=== PATIENT | female | born 1940 | race Caucasian/White ===

== ENCOUNTER 2017-02-14 15:17 | Inpatient (IN) | payer MEDICARE ==
[~2017-02-14] VITALS: Ht 165.1 cm; Wt 71.9 kg
--- NOTE | ~2017-02-14 | EKG ---
[place], [place] ELECTROCARDIOGRAM REPORT NAME: REGGIE AUGUSTE UNIT #: [id number] ROOM: 404 DOCTOR: SIXTO RICE MD BIRTHDATE: [birth year] DOS: 02/14/2017 TIME: 1554 hours. Atrial fibrillation with a ventricular rate of 71 beats per minute. No evidence of ischemia or infarction. An abnormal ECG. No previous tracing is available for comparison. SIXTO RICE MD CM:EKGRPT:ELECTROCARDIOGRAM REPORT [id number] 1415 SIXTO RICE MD
--- NOTE | ~2017-02-14 | CON ---
[place], [place] REPORT OF CONSULTATION [id number] UNIT #: [id number] ROOM: 404 DOCTOR: SIXTO RICE MD BIRTHDATE: [birth year] DOS: 02/15/2017 HISTORY OF PRESENT ILLNESS: This is a 76-year-old -[place] woman with a history of breast cancer diagnosed in 1999, without any recurrences; GERD; hypercholesterolemia; hypertension. She has never had any rhythm problem of the heart, coronary artery disease. She had a diagnostic heart catheterization in this hospital in 2006, which I performed and she had normal coronary arteries at that time. She has never had a stroke, diabetes mellitus, kidney problems or anemia or any other chronic issues. She had back surgery in the remote past as well as a cholecystectomy and left breast lumpectomy for cancer. She smokes 1-1/2 to 2 packs of cigarettes per day and has done this for a long time. No use of illicit drugs and really uses no alcoholic beverage. She had some abdominal pain a few days ago and ended up in [facility] Emergency Department, where evaluation was done and she was discharged home. She went to see Dr. Richards yesterday and was found to be in atrial fibrillation and was admitted. I was asked to participate in the care of this dysrhythmia. The patient is not aware of her heart beating irregularly. She has not had any palpitations. There has not been any undue shortness of breath, PND, orthopnea, or swelling of the lower extremities. She has not had any neurological symptoms. HOME MEDICATIONS: Include pravastatin 40 daily, omeprazole 20 daily, vitamin D and aspirin 81 mg daily. PHYSICAL EXAMINATION: GENERAL: Reveals a patient who is very pleasant, alert. She is tall and slim. There is no thyromegaly or finger clubbing. She is not jaundiced. VITAL SIGNS: Pulse is irregular at 60 beats per minute, blood pressure 137/77. NECK: JVP is normal. There is no carotid bruit. HEART: There is no cardiomegaly. No murmurs are present. EXTREMITIES: There is no rub. Pedal pulses are excellent. There is no edema of the lower extremities. RESPIRATORY: She is not tachypneic. Percussion note is normal. Auscultation reveals only mild reduced breath sounds with no adventitious sounds. ABDOMEN: Supple, nontender. No bruits or pulsatile mass. LABORATORY DATA: An ECG on admission demonstrated atrial fibrillation with a controlled rate, no ischemia or infarction. The chest x-ray demonstrated no acute process. Renal function was normal. Potassium was 3.6. Liver profile was fairly decent TSH was 0.617, which is normal. An echocardiogram was performed today, which demonstrated an LVEF of 55-60%, normal right ventricular size and normal systolic function and normal left atrial size, and trace to mild tricuspid regurgitation, mild mitral regurgitation. [place], [place] REPORT OF CONSULTATION NAME: REGGIE AUGUSTE UNIT #: [id number] ROOM: 404 DOCTOR: SIXTO RICE MD BIRTHDATE: [birth year] IMPRESSION: This patient has newly diagnosed atrial fibrillation with controlled ventricular rate. She is not on any beta freddy or any negative chronotropic drugs. Thus, suggest that she probably has AV node dysfunction. I totally agree with you in placing her on DOAC i.e. apixaban/Eliquis 5 mg b.i.d. RECOMMENDATIONS: She should be continued on anticoagulation. I would like to see her in the office in 3-4 weeks. If she still is in atrial fibrillation, then electrical cardioversion will be attempted which I think will likely to be successful with the background of normal LV systolic function and normal left atrial size. If this fails, then she will be started on antiarrhythmic drug and cardioversion can be reattempted. She had normal coronary arteries 8 years ago and it is unlikely there is underlying coronary artery disease as the cause of her atrial fibrillation, but one probably should consider doing a Lexiscan Cardiolite study to exclude significant coronary disease. I thank you for this consult. SIXTO RICE MD CM:CONSTR:REPORT OF CONSULTATION 1342 02/16/17 0205 interface
[~2017-02-14 15:17] MED LIST: ASPIRIN81 M1 PO; CALCIUM 500 + D1 TA1 PO; CENTRUM1 TAB PO; CIPROFLOXACIN250 MG PO; CONSTULOSE10 GM/15 M PO; DARVOCET N 1001 TAB PO; DAYPRO600 M1 PO; FLEXERIL10 MG PO; HYDROCODONE BIT1 T11 PO; LOPRESSOR25 MG PO; LOTREL 10 MG-201 CAP PO; NAPROSYN500 MG PO; NORFLEX100 MG PO; NORVASC10 MG PO; OYSTER CALCIUM/1 TAB PO; PRAVASTATIN SOD40 MG PO; PRILOSEC20 MG PO; SKELAXIN800 MG PO; VITAMIN D400 UNIT PO; ZANTAC150 MG PO; ZOCOR10 MG PO
[2017-02-14 15:33] VITALS: BP 159/58
[2017-02-14 16:14] LABS: BASO # 0.1 10*3/uL (0.0-0.1); BASO % 0.7 % (0.0-1.0); EOS # 0.3 10*3/uL (0.0-0.4); EOS % 2.8 % (1.0-4.0); HEMATOCRIT 44.1 % (37.0-47.0); LYMPH # 2.6 10*3/uL (1.3-4.4); LYMPH % 28.8 % (27.0-41.0); MEAN CELL VOLUME 93.8 fl (81.0-99.0); MEAN CORPUSCULAR HGB 31.9 pg (27.0-31.0); MEAN PLATELET VOLUME 11.1 fl (9.6-12.3); MONO # 0.8 10*3/uL (0.1-1.0); MONO % 8.7 % (3.0-9.0); NEUT # 5.3 10*3/uL (2.3-7.9); NEUT % 58.6 % (47.0-73.0); PLATELET COUNT AUTOMATED 272 10*3/uL (130-400); RED CELL DISTRI WIDTH 14.6 % (0-14.5)
[2017-02-14 16:37] LABS: ALBUMIN 3.5 gm/dl (3.1-4.5); ALKALINE PHOSPHATASE 124 U/L (45-117); BUN 8 mg/dl (7-24); CHLORIDE 107 mmol/L (98-107); CREATININE 0.89 mg/dL (0.55-1.02); LIPASE 163 U/L (73-393); MAGNESIUM 2.2 mg/dL (1.5-2.1); POTASSIUM 4.4 mmol/L (3.5-5.1); SGOT/AST 15 IU/L (3-35); SGPT/ALT 20 U/L (12-78); SODIUM 142 mmol/L (136-145); TOTAL PROTEIN 7.6 gm/dL (6.4-8.2)
[2017-02-14 16:39] LABS: TROPONIN I < 0.015 ng/ml (<0.045)
[2017-02-14 17:10] LABS: BILIRUBIN NEGATIVE (NEGATIVE); BLOOD NEGATIVE (NEGATIVE); CLARITY SL CLOUDY (CLEAR); COLOR YELLOW (YELLOW); GLUCOSE NEGATIVE (NEGATIVE); KETONE NEGATIVE (NEGATIVE); LEUKO ESTERASE NEGATIVE (NEGATIVE); NITRITE NEGATIVE (NEGATIVE); SPECIFIC GRAVITY <= 1.005 (1.005-1.030); UROBILINOGEN 0.2 E.U./dl (0.2-1.0)
[2017-02-14 17:19] LABS: BACTERIA 2+; WBC 0-2 wbc/hpf (0-5)
--- NOTE | 2017-02-14 18:51 | NUR ---
[facility] 76[facility] , under the services of NALINI Johnson MD with a diagnosis of AFIB. Chief complaint is EKG \CHANGES. Patient arrived via bed from ER. Monitor applied. Initial assessment completed. Vital signs taken and recorded. NALINI JOHNSON MD notified of admission to the unit. Orders received. See assessment for past medical history, medications and allergies. Patient and/or family oriented to unit. [facility] visitation policy reviewed. Clothing/patient valuable form completed. JAYLON FERRERA
--- NOTE | 2017-02-14 19:03 | NUR ---
DR. RICE AWARE OF CONSULT AND IS IN AGREEMENT WITH LAKISHA. ECHO TO BE ORDERED AND WILL SEE IN AM.
[2017-02-14 19:06] VITALS: BP 145/51
[2017-02-14 20:00] VITALS: BP 125/58
[2017-02-15] VITALS: BP 145/76
--- NOTE | 2017-02-15 04:02 | NUR ---
PATIENT RESTING IN BED WITH EYES CLOSED. NO SIGNS OR SYMPTOMS OF DISTRESS NOTED. NO COMPLAINTS OF PAIN OR DISCOMFORT VOICED THROUGHOUT SHIFT. WILL CONTINUE TO MONITOR. CALL LIGHT IN REACH.
[2017-02-15 05:50] LABS: BASO # 0.1 10*3/uL (0.0-0.1); BASO % 0.8 % (0.0-1.0); EOS # 0.4 10*3/uL (0.0-0.4); EOS % 4.5 % (1.0-4.0); HEMATOCRIT 41.1 % (37.0-47.0); HEMOGLOBIN 13.4 g/dl (12.0-16.0); LYMPH # 3.1 10*3/uL (1.3-4.4); LYMPH % 36.1 % (27.0-41.0); MEAN CELL VOLUME 94.7 fl (81.0-99.0); MEAN CORPUSCULAR HGB 30.9 pg (27.0-31.0); MEAN CORPUSCULAR HGB CONC 32.6 g/dl (33.0-37.0); MEAN PLATELET VOLUME 11.5 fl (9.6-12.3); MONO % 11.1 % (3.0-9.0); NEUT # 4.1 10*3/uL (2.3-7.9); PLATELET COUNT AUTOMATED 261 10*3/uL (130-400); RED BLOOD COUNT 4.34 10*6/uL (4.10-5.10); RED CELL DISTRI WIDTH 14.7 % (0-14.5); WHITE BLOOD COUNT 8.6 10*3/uL (4.8-10.8)
[2017-02-15 06:10] LABS: ALBUMIN 2.9 gm/dl (3.1-4.5); ALKALINE PHOSPHATASE 104 U/L (45-117); BUN 8 mg/dl (7-24); CHLORIDE 108 mmol/L (98-107); CHOLESTEROL 131 mg/dL (<200); CREATININE 0.72 mg/dL (0.55-1.02); HDL CHOLESTEROL 48 mg/dl (40-60); LDL CHOLESTEROL 60 mg/dL (9-159); PHOSPHOROUS 3.7 mg/dL (2.5-4.9); POTASSIUM 3.6 mmol/L (3.5-5.1); SGOT/AST 11 IU/L (3-35); SGPT/ALT 17 U/L (12-78); SODIUM 143 mmol/L (136-145); TOTAL PROTEIN 6.4 gm/dL (6.4-8.2); TRIGLYCERIDES 113 mg/dl (<150); VLDL CHOLESTEROL 23 mg/dL (6-40)
[2017-02-15 06:17] LABS: THYROID STIM HORMONE (HS) 0.617 uIU/ml (0.358-4.75)
[2017-02-15 06:42] LABS: VITAMIN D, 25-HYDROXY 35.2 ng/mL (30-100)
[2017-02-15 08:00] VITALS: BP 154/74
--- NOTE | 2017-02-15 08:00 | NUR ---
Patient resting quietly with no c/o discomfort. Respirations easy and regular. Vital signs stable. No overt distress. CHUCK GARNICA R
--- NOTE | 2017-02-15 08:38 | NUR ---
[employer] Developer in to talk to patient. Patient states lives at HOME with HER DAUGHTER. There are 0 steps in the home. Physician: DR CAMPBELL Pharmacy: [facility] [place] Home health services: NONE Patient's level of ADLs: INDEPENDENT Patient has working utilities: YES DME: Follow-up physician's appointment after d/c: PREFERS TO MAKE HER OWN APPT Does patient want to access PORTAL?: Discharge plan HOME. OLIVER RAUSCH
--- NOTE | 2017-02-15 09:01 | NUR ---
PT HAS A CANE AND WALKER AT HOME.
--- NOTE | 2017-02-15 09:24 | NUR ---
ELIQUIS APPROVED THROUGH [facility]. PER MARILYNE SAVANNAH IN [place], PT WILL HAVE $8.[address] HODGSON NOTIFIED.
--- NOTE | 2017-02-15 09:31 | NUR ---
Marielos nathan called re: medication verification. Fax will be sent over soon per pharmacy staff.
[2017-02-15 12:00] VITALS: BP 137/77
[2017-02-15] MEDS ORDERED: ELIQUIS5 M1 PO (13:30)
--- NOTE | 2017-02-15 14:24 | NUR ---
Discharge instructions reviewed with patient/family. Patient receptive and verbalizes understanding. Follow-up care arranged. Written instructions given to patient/family. FÁTIMA NASH
== END 2017-02-15 14:24 | disposition home or self-care (01) | DRG 309 ==
LOC: ED 15:17 → EDHOLD 17:30 → 4E 17:30
PROVIDERS: Internal Medicine Hospice and Palliative Medicine; Physician Assistant; ADMIT Internal Medicine
DX: I48.91 Unspecified atrial fibrillation (principal); E87.2 Acidosis; E83.41 Hypermagnesemia; R73.9 Hyperglycemia, unspecified; I48.92 Unspecified atrial flutter; K21.9 Gastro-esophageal reflux disease without esophagitis; E78.00 Pure hypercholesterolemia, unspecified; I10 Essential (primary) hypertension; R19.7 Diarrhea, unspecified; Z88.2 Allergy status to sulfonamides; Z91.048 Other nonmedicinal substance allergy status; Z79.2 Long term (current) use of antibiotics; Z88.0 Allergy status to penicillin; Z79.82 Long term (current) use of aspirin; Z79.899 Other long term (current) drug therapy; Z90.49 Acquired absence of other specified parts of digestive tract; Z82.49 Family history of ischemic heart disease and other diseases of the circulatory system; Z83.3 Family history of diabetes mellitus; Z85.3 Personal history of malignant neoplasm of breast; Z90.710 Acquired absence of both cervix and uterus; Z82.3 Family history of stroke; Z84.89 Family history of other specified conditions; Z71.6 Tobacco abuse counseling; Z72.0 Tobacco use

== ENCOUNTER → 2017-10-15 | Outpatient (CLI) | payer MEDICARE ==
[~2017-10-15] MED LIST changes: +ELIQUIS5 M1 PO
== END | disposition home or self-care (01) ==
LOC: MAMMO 03:56
DX: C50.912 Malignant neoplasm of unspecified site of left female breast (principal); R92.8 Other abnormal and inconclusive findings on diagnostic imaging of breast

== ENCOUNTER → 2018-01-29 | Outpatient (CLI) | payer MEDICARE | END | disposition home or self-care (01) | LOC: RAD 12:45 | DX: M25.552 Pain in left hip (principal) ==

== ENCOUNTER → 2018-02-14 | Outpatient (CLI) | payer MEDICARE | END | disposition home or self-care (01) | LOC: MRI 10:46 | DX: M16.12 Unilateral primary osteoarthritis, left hip (principal); M81.0 Age-related osteoporosis without current pathological fracture; Z85.3 Personal history of malignant neoplasm of breast ==

== ENCOUNTER → 2019-01-30 | Day surgery (SDC) | payer MEDICARE ==
[~2019-01-30] MED LIST changes: +NORCO 5-325 TA1 EACH PO
--- NOTE | ~2019-01-30 | O ---
[place], [place] OPERATIVE NOTE NAME: [facility] [id number] UNIT #: [id number] ROOM: DO[facility] [birth year] DOS: 01/30/2019 GASTROENDOSCOPIC REPORT HISTORY OF PRESENT ILLNESS: This is a 78-year-old patient who has presented with Cologuard positivity, complaint of melanoma and has been on Eliquis and aspirin. ALLERGIES: SULFA, PENICILLIN, AND ____. FAMILY HISTORY: Noncontributory. PAST SURGICAL HISTORY: Partial mastectomy. PAST MEDICAL HISTORY: Breast lumpectomy, status post chemoradiation therapy, and hypercholesterolemia. SOCIAL HISTORY: Active smoker, social alcohol consumer. PROCEDURE #1: PROCEDURE: Today's procedure part of investigation is colonoscopy and panendoscopy. PREMEDICATION: Propofol. SCOPE: Olympus forward-viewing gastroscope Q10 video. REPORT: After putting the patient in left lateral position and application of lubricant to the scope, the scope was introduced. Thereafter, under direct visualization, advanced through the length of esophagus without difficulty. Small hiatal hernia was seen, gastritis noticed. Antral biopsy obtained. Duodenal bulb, second and third part within normal limit. The patient extubated, tolerated the procedure well. IMPRESSION: Gastritis. PLAN AND DISCUSSION: We will continue with Prilosec 20 mg every day. We will proceed with colonoscopy. PROCEDURE #2: INDICATION: The patient has presented with Cologuard positivity. PROCEDURE: Today's procedure part of investigation is colonoscopy plus polypectomy with a snare plus tattoo marking of the sigmoid colon. PREMEDICATION: Propofol. [place], [place] OPERATIVE NOTE NAME: REGGIE AUGUSTE UNIT #: [id number] ROOM: DOCTOR[facility] [birth year] SCOPE: Olympus forward-viewing colonoscope 10L video. DESCRIPTION OF PROCEDURE: After putting the patient in left lateral position and application of lubricant to rectal pouch and distal examination, scope was introduced. Thereafter, under direct visualization, advanced through the length of colon without difficulty. Numerous polypoid lesions throughout the colon was identified, one in sigmoid colon, partially ____ with snare tattoo marking of the area was done. There is essentially too many small and medium size polyps ____ complete polypectomies. The area of the colon concern was tattoo marked. The patient extubated, tolerated the procedure well. IMPRESSION: Many colonic polyps with polypectomy on one and tattoo marking of the sigmoid colon. PLAN AND DISCUSSION: Of mention is that the patient has a cecal large angiodysplastic lesion, which is another source of possible blood loss, particularly in view of the intake of aspirin and Eliquis. We have to discuss with the family to see if they want to remain conservative due to the age of the patient, 78 or would they like to consider periodic colonoscopy and periodic eradication of numerous polyps and also argon plasma coagulation therapy for eradication of the cecal angiodysplastic lesion. INDIGO IRBAHIM MD CM:OPRECORD:OPERATIVE NOTE 1131 1501 INDIGO IBRAHIM MD 01/30/19 1459 interface
[2019-01-30 09:30] VITALS: BP 168/81
[2019-01-30 11:16] VITALS: BP 115/44
[2019-01-30 11:26] VITALS: BP 117/45
[2019-01-30 11:46] VITALS: BP 114/64
== END | disposition home or self-care (01) ==
LOC: SDC 01-27 08:00
DX: K63.5 Polyp of colon (principal); K44.9 Diaphragmatic hernia without obstruction or gangrene; K29.50 Unspecified chronic gastritis without bleeding; I10 Essential (primary) hypertension; K21.9 Gastro-esophageal reflux disease without esophagitis; E78.5 Hyperlipidemia, unspecified; I48.91 Unspecified atrial fibrillation; F17.210 Nicotine dependence, cigarettes, uncomplicated; Z88.8 Allergy status to other drugs, medicaments and biological substances; Z79.899 Other long term (current) drug therapy; Z98.890 Other specified postprocedural states; Z83.3 Family history of diabetes mellitus

== ENCOUNTER → 2019-02-03 | Day surgery (SDC) | payer MEDICARE ==
[~2019-02-03] VITALS: Ht 165.1 cm; Wt 68.9 kg
[2019-02-03 14:00] VITALS: BP 141/53
[2019-02-03 15:53] VITALS: BP 131/44
[2019-02-03 16:10] VITALS: BP 150/44
[2019-02-03 16:19] VITALS: BP 153/58
== END | disposition home or self-care (01) ==
LOC: SDC 08:10
DX: L72.0 Epidermal cyst (principal); I10 Essential (primary) hypertension; E11.9 Type 2 diabetes mellitus without complications; K21.9 Gastro-esophageal reflux disease without esophagitis; F41.9 Anxiety disorder, unspecified; F32.9 Major depressive disorder, single episode, unspecified; J44.9 Chronic obstructive pulmonary disease, unspecified; E78.5 Hyperlipidemia, unspecified; R22.2 Localized swelling, mass and lump, trunk; E66.9 Obesity, unspecified; Z68.36 Body mass index [BMI] 36.0-36.9, adult; Z98.890 Other specified postprocedural states; Z87.891 Personal history of nicotine dependence; Z79.899 Other long term (current) drug therapy; Z88.8 Allergy status to other drugs, medicaments and biological substances; Z88.0 Allergy status to penicillin; Z83.3 Family history of diabetes mellitus

== ENCOUNTER → 2019-03-23 | Day surgery (SDC) | payer MEDICARE ==
[~2019-03-23] VITALS: Ht 165.1 cm; Wt 68.0 kg
[2019-03-23 07:30] VITALS: BP 164/50
[2019-03-23 09:17] VITALS: BP 170/60
[2019-03-23 09:32] VITALS: BP 146/82
[2019-03-23 09:47] VITALS: BP 156/65
[2019-03-23 10:02] VITALS: BP 147/74
== END | disposition home or self-care (01) ==
LOC: SDC 03-20 11:45
DX: L72.0 Epidermal cyst (principal); K21.9 Gastro-esophageal reflux disease without esophagitis; I10 Essential (primary) hypertension; I48.91 Unspecified atrial fibrillation; E78.00 Pure hypercholesterolemia, unspecified; E78.5 Hyperlipidemia, unspecified; F17.210 Nicotine dependence, cigarettes, uncomplicated; Z90.49 Acquired absence of other specified parts of digestive tract; Z90.710 Acquired absence of both cervix and uterus; Z98.890 Other specified postprocedural states; Z79.899 Other long term (current) drug therapy; Z88.0 Allergy status to penicillin; Z88.8 Allergy status to other drugs, medicaments and biological substances; Z85.3 Personal history of malignant neoplasm of breast; Z82.5 Family history of asthma and other chronic lower respiratory diseases; Z83.3 Family history of diabetes mellitus

== ENCOUNTER 2019-09-28 15:39 | Emergency (ER) | payer MEDICARE ==
[~2019-09-28] VITALS: Ht 165.1 cm; Wt 71.7 kg
[2019-09-28 16:11] VITALS: BP 142/65
[2019-09-28 16:50] LABS: BASO # 0.1 10*3/uL (0.0-0.1); BASO % 0.6 % (0.0-1.0); EOS # 0.2 10*3/uL (0.0-0.4); EOS % 2.1 % (1.0-4.0); HEMATOCRIT 40.2 % (37.0-47.0); LYMPH # 2.6 10*3/uL (1.3-4.4); LYMPH % 22.7 % (27.0-41.0); MEAN CELL VOLUME 91.8 fl (81.0-99.0); MEAN CORPUSCULAR HGB 30.1 pg (27.0-31.0); MEAN CORPUSCULAR HGB CONC 32.8 g/dl (33.0-37.0); MEAN PLATELET VOLUME 11.2 fl (9.6-12.3); MONO # 1.1 10*3/uL (0.1-1.0); MONO % 9.3 % (3.0-9.0); NEUT # 7.5 10*3/uL (2.3-7.9); NEUT % 64.9 % (47.0-73.0); PLATELET COUNT AUTOMATED 298 10*3/uL (130-400); RED BLOOD COUNT 4.38 10*6/uL (4.10-5.10); WHITE BLOOD COUNT 11.6 10*3/uL (4.8-10.8)
[2019-09-28 17:00] LABS: ACT PARTIAL THROMBO TIME 28.2 SECONDS (20.0-32.1)
[2019-09-28 17:05] LABS: ALBUMIN 3.7 gm/dl (3.1-4.5); ALKALINE PHOSPHATASE 104 U/L (45-117); BUN 13 mg/dl (7-24); CHLORIDE 113 mmol/L (98-107); CREATININE 1.18 mg/dL (0.55-1.02); LIPASE 195 U/L (73-393); POTASSIUM 3.8 mmol/L (3.5-5.1); SGOT/AST 16 IU/L (3-35); SGPT/ALT 25 U/L (12-78); SODIUM 142 mmol/L (136-145); TOTAL PROTEIN 7.5 gm/dL (6.4-8.2)
[2019-09-28 17:08] LABS: TROPONIN I < 0.015 ng/ml (<0.045)
== END 2019-09-28 19:14 | disposition home or self-care (01) ==
LOC: ED 15:39
PROVIDERS: Nurse Practitioner Family
DX: K92.1 Melena (principal); I48.91 Unspecified atrial fibrillation; I10 Essential (primary) hypertension; K21.9 Gastro-esophageal reflux disease without esophagitis; E78.00 Pure hypercholesterolemia, unspecified; F17.200 Nicotine dependence, unspecified, uncomplicated; Z86.73 Personal history of transient ischemic attack (TIA), and cerebral infarction without residual deficits; Z88.0 Allergy status to penicillin; Z88.2 Allergy status to sulfonamides; Z91.048 Other nonmedicinal substance allergy status; Z79.899 Other long term (current) drug therapy; Z79.82 Long term (current) use of aspirin; Z98.61 Coronary angioplasty status; Z90.710 Acquired absence of both cervix and uterus; Z90.89 Acquired absence of other organs; Z90.49 Acquired absence of other specified parts of digestive tract

== ENCOUNTER 2020-02-02 11:10 | Emergency (ER) | payer MEDICARE ==
[~2020-02-02] VITALS: Ht 175.2 cm; Wt 76.7 kg
[2020-02-02 12:08] LABS: BASO % 0.5 % (0.0-1.0); EOS # 0.2 10*3/uL (0.0-0.4); EOS % 2.7 % (1.0-4.0); HEMATOCRIT 43.3 % (37.0-47.0); LYMPH # 2.1 10*3/uL (1.3-4.4); MEAN CELL VOLUME 91.7 fl (81.0-99.0); MEAN CORPUSCULAR HGB 29.2 pg (27.0-31.0); MEAN CORPUSCULAR HGB CONC 31.9 g/dl (33.0-37.0); MEAN PLATELET VOLUME 11.5 fl (9.6-12.3); MONO # 0.7 10*3/uL (0.1-1.0); MONO % 8.9 % (3.0-9.0); NEUT % 61.7 % (47.0-73.0); PLATELET COUNT AUTOMATED 293 10*3/uL (130-400); RED BLOOD COUNT 4.72 10*6/uL (4.10-5.10); RED CELL DISTRI WIDTH 14.9 % (0-14.5); WHITE BLOOD COUNT 8.1 10*3/uL (4.8-10.8)
[2020-02-02 12:22] LABS: ALBUMIN 3.7 gm/dl (3.1-4.5); ALKALINE PHOSPHATASE 101 U/L (45-117); BUN 18 mg/dl (7-24); CHLORIDE 112 mmol/L (98-107); CREATININE 0.86 mg/dL (0.55-1.02); SGOT/AST 12 IU/L (3-35); SGPT/ALT 21 U/L (12-78); SODIUM 143 mmol/L (136-145); TOTAL PROTEIN 7.6 gm/dL (6.4-8.2)
[2020-02-02 12:53] VITALS: BP 167/57
== END 2020-02-02 16:00 | disposition short-term general hospital (02) ==
LOC: ED 11:10
PROVIDERS: Emergency Medicine
DX: I63.9 Cerebral infarction, unspecified (principal); K21.9 Gastro-esophageal reflux disease without esophagitis; I10 Essential (primary) hypertension; E78.00 Pure hypercholesterolemia, unspecified; Z88.0 Allergy status to penicillin; Z88.2 Allergy status to sulfonamides; Z79.899 Other long term (current) drug therapy

== ENCOUNTER → 2020-04-22 | Outpatient (CLI) | payer MEDICARE | END | disposition home or self-care (01) | LOC: US 11:53 | PROVIDERS: ATTEND Internal Medicine | DX: I65.23 Occlusion and stenosis of bilateral carotid arteries (principal); R20.0 Anesthesia of skin ==

== ENCOUNTER → 2020-07-20 | Outpatient (CLI) | payer MEDICARE | END | disposition home or self-care (01) | LOC: MAMMO 06-22 11:30 | PROVIDERS: ATTEND Internal Medicine | DX: Z12.31 Encounter for screening mammogram for malignant neoplasm of breast (principal); N64.89 Other specified disorders of breast ==

== ENCOUNTER → 2021-04-18 | Outpatient (CLI) | payer MEDICARE | END | disposition home or self-care (01) | LOC: LAB 00:14 → US 09:30 | PROVIDERS: ATTEND Internal Medicine | DX: R10.30 Lower abdominal pain, unspecified (principal) ==

== ENCOUNTER 2021-09-22 12:01 | Emergency (ER) | payer OTHER ==
[~2021-09-22] VITALS: Wt 81.2 kg
[2021-09-22 12:41] LABS: BILIRUBIN Negative (Negative); BLOOD Negative (Negative); CLARITY Clear (Clear); COLOR Yellow (Yellow); GLUCOSE Negative (Negative); KETONE Negative (Negative); LEUKO ESTERASE Negative (Negative); NITRITE Negative (Negative)
[2021-09-22 12:43] LABS: HEMATOCRIT 35.1 % (37.0-47.0); MEAN CELL VOLUME 82.6 fl (81.0-99.0); MEAN CORPUSCULAR HGB 26.6 pg (27.0-31.0); MEAN CORPUSCULAR HGB CONC 32.2 g/dl (33.0-37.0); PLATELET COUNT AUTOMATED 331 10*3/uL (130-400); RED BLOOD COUNT 4.25 10*6/uL (4.10-5.10); RED CELL DISTRI WIDTH 16.7 % (0-14.5); WHITE BLOOD COUNT 18.8 10*3/uL (4.8-10.8)
[2021-09-22 12:57] LABS: ALKALINE PHOSPHATASE 126 U/L (45-117); BUN 10 mg/dl (7-24); CHLORIDE 105 mmol/L (98-107); CREATININE 0.84 mg/dL (0.55-1.02); LIPASE 146 U/L (73-393); POTASSIUM 3.8 mmol/L (3.5-5.1); SGOT/AST 15 IU/L (3-35); SGPT/ALT 16 U/L (12-78); SODIUM 136 mmol/L (136-145)
[2021-09-22 13:00] LABS: MANUAL DIFF REFLEX YES
[2021-09-22 13:03] LABS: PLATELET SUFFICIENCY NORMAL (NORMAL); TOTAL CELLS COUNTED 100 #CELLS
[2021-09-22 13:14] LABS: BACTERIA TRACE; EPITHELIAL CELLS 0-2; WBC 0-2 wbc/hpf (0-5)
[2021-09-22 15:18] VITALS: BP 136/82
== END 2021-09-22 18:22 | disposition short-term general hospital (02) ==
LOC: ED 12:01
PROVIDERS: Nurse Practitioner Family
DX: K35.80 Unspecified acute appendicitis (principal); Z88.0 Allergy status to penicillin; Z88.2 Allergy status to sulfonamides; Z79.899 Other long term (current) drug therapy; Z79.82 Long term (current) use of aspirin; Z90.49 Acquired absence of other specified parts of digestive tract; Z90.89 Acquired absence of other organs; Z90.710 Acquired absence of both cervix and uterus; F17.200 Nicotine dependence, unspecified, uncomplicated

== ENCOUNTER 2023-01-07 14:30 | Emergency (ER) | payer OTHER ==
[~2023-01-07] VITALS: Ht 152.4 cm; Wt 77.1 kg
[~2023-01-07 14:30] MED LIST changes: +AMLODIPINE BESY10 MG PO; +CEFUROXIME AXE500 MG PO; +LEVOFLOXACIN750 M2 PO; +MONTELUKAST SOD10 MG PO; +OMEPRAZOLE40 MG PO; +TRAZODONE50 MG PO; +VALSARTAN160 MG PO
[2023-01-07 15:29] LABS: BASO # 0.1 10*3/uL (0.0-0.1); BASO % 0.7 % (0.0-1.0); EOS # 0.3 10*3/uL (0.0-0.4); HEMATOCRIT 33.6 % (37.0-47.0); LYMPH # 2.9 10*3/uL (1.3-4.4); LYMPH % 29.4 % (27.0-41.0); MEAN CELL VOLUME 76.7 fl (81.0-99.0); MEAN CORPUSCULAR HGB 23.7 pg (27.0-31.0); MEAN PLATELET VOLUME 10.7 fl (9.6-12.3); MONO # 0.9 10*3/uL (0.1-1.0); MONO % 8.6 % (3.0-9.0); NEUT # 5.8 10*3/uL (2.3-7.9); PLATELET COUNT AUTOMATED 354 10*3/uL (130-400); RED BLOOD COUNT 4.38 10*6/uL (4.10-5.10); RED CELL DISTRI WIDTH 19.4 % (0-14.5); WHITE BLOOD COUNT 9.9 10*3/uL (4.8-10.8)
[2023-01-07 15:58] LABS: ALKALINE PHOSPHATASE 108 U/L (46-116); BUN 7 mg/dl (9-23); CHLORIDE 108 mmol/L (98-107); POTASSIUM 3.9 mmol/L (3.4-5.1); SGPT/ALT 9 U/L (10-49); TOTAL PROTEIN 7.1 gm/dL (6.0-8.0)
[2023-01-07 16:49] VITALS: BP 138/68
[2023-01-07] MEDS ORDERED: DIOVAN320 MG PO (16:55)
== END 2023-01-07 16:57 | disposition home or self-care (01) ==
LOC: ED 14:30
PROVIDERS: Internal Medicine
DX: I10 Essential (primary) hypertension (principal); R51.9 Headache, unspecified; M79.602 Pain in left arm; I48.91 Unspecified atrial fibrillation; K21.9 Gastro-esophageal reflux disease without esophagitis; E78.00 Pure hypercholesterolemia, unspecified; Z88.0 Allergy status to penicillin; Z88.2 Allergy status to sulfonamides; Z88.8 Allergy status to other drugs, medicaments and biological substances; Z90.710 Acquired absence of both cervix and uterus; Z90.89 Acquired absence of other organs; Z90.49 Acquired absence of other specified parts of digestive tract; Z98.890 Other specified postprocedural states; F17.200 Nicotine dependence, unspecified, uncomplicated

== ENCOUNTER → 2023-02-14 | Outpatient (CLI) | payer OTHER ==
[~2023-02-14] MED LIST changes: +DIOVAN320 MG PO
[2023-02-14 12:41] LABS: BASO # 0.1 10*3/uL (0.0-0.1); BASO % 0.9 % (0.0-1.0); EOS # 0.3 10*3/uL (0.0-0.4); EOS % 2.7 % (1.0-4.0); HEMATOCRIT 36.3 % (37.0-47.0); LYMPH # 2.8 10*3/uL (1.3-4.4); LYMPH % 23.3 % (27.0-41.0); MEAN CELL VOLUME 77.9 fl (81.0-99.0); MEAN CORPUSCULAR HGB 23.6 pg (27.0-31.0); MEAN CORPUSCULAR HGB CONC 30.3 g/dl (33.0-37.0); MEAN PLATELET VOLUME 10.9 fl (9.6-12.3); NEUT # 7.6 10*3/uL (2.3-7.9); NEUT % 63.7 % (47.0-73.0); PLATELET COUNT AUTOMATED 350 10*3/uL (130-400); RED BLOOD COUNT 4.66 10*6/uL (4.10-5.10); RED CELL DISTRI WIDTH 19.7 % (0-14.5); WHITE BLOOD COUNT 11.9 10*3/uL (4.8-10.8)
[2023-02-14 13:08] LABS: BUN 16 mg/dl (9-23); CHLORIDE 106 mmol/L (98-107)
[2023-02-14 13:20] LABS: INTERNATIONAL NORM RATIO 1.1 (2.0-3.5)
== END | disposition home or self-care (01) ==
LOC: LAB 12:06
PROVIDERS: ATTEND Surgery Vascular Surgery
DX: Z01.818 Encounter for other preprocedural examination (principal); J44.9 Chronic obstructive pulmonary disease, unspecified; I73.9 Peripheral vascular disease, unspecified; R79.1 Abnormal coagulation profile

== ENCOUNTER 2023-03-08 13:11 | Emergency (ER) | payer OTHER ==
[~2023-03-08] VITALS: Ht 165.1 cm; Wt 74.8 kg
[2023-03-08 13:32] VITALS: BP 180/70
[2023-03-08 14:04] LABS: BASO # 0.1 10*3/uL (0.0-0.1); BASO % 0.8 % (0.0-1.0); EOS # 0.4 10*3/uL (0.0-0.4); EOS % 3.1 % (1.0-4.0); HEMATOCRIT 35.4 % (37.0-47.0); LYMPH # 2.9 10*3/uL (1.3-4.4); LYMPH % 21.1 % (27.0-41.0); MEAN CELL VOLUME 76.8 fl (81.0-99.0); MEAN CORPUSCULAR HGB 23.9 pg (27.0-31.0); MEAN CORPUSCULAR HGB CONC 31.1 g/dl (33.0-37.0); MEAN PLATELET VOLUME 10.5 fl (9.6-12.3); MONO # 1.3 10*3/uL (0.1-1.0); MONO % 9.6 % (3.0-9.0); NEUT # 8.7 10*3/uL (2.3-7.9); NEUT % 63.8 % (47.0-73.0); PLATELET COUNT AUTOMATED 437 10*3/uL (130-400); RED BLOOD COUNT 4.61 10*6/uL (4.10-5.10); RED CELL DISTRI WIDTH 20.2 % (0-14.5); WHITE BLOOD COUNT 13.7 10*3/uL (4.8-10.8)
[2023-03-08 14:22] LABS: ACT PARTIAL THROMBO TIME 28.5 SECONDS (20.0-32.1); INTERNATIONAL NORM RATIO 1.1 (2.0-3.5)
[2023-03-08 14:24] LABS: ALKALINE PHOSPHATASE 124 U/L (46-116); BUN 11 mg/dl (9-23); CHLORIDE 106 mmol/L (98-107); POTASSIUM 4.2 mmol/L (3.4-5.1); SGPT/ALT 11 U/L (5-49); TOTAL PROTEIN 7.3 gm/dL (6.0-8.0)
== END 2023-03-08 16:26 | disposition home or self-care (01) ==
LOC: ED 13:11
PROVIDERS: Nurse Practitioner Family
DX: R07.89 Other chest pain (principal); I10 Essential (primary) hypertension; K21.9 Gastro-esophageal reflux disease without esophagitis; E78.00 Pure hypercholesterolemia, unspecified; R73.9 Hyperglycemia, unspecified; E83.41 Hypermagnesemia; Z88.0 Allergy status to penicillin; Z88.2 Allergy status to sulfonamides; Z88.8 Allergy status to other drugs, medicaments and biological substances; F17.200 Nicotine dependence, unspecified, uncomplicated; Z90.710 Acquired absence of both cervix and uterus; Z90.89 Acquired absence of other organs; Z90.49 Acquired absence of other specified parts of digestive tract; Z95.5 Presence of coronary angioplasty implant and graft; Z90.12 Acquired absence of left breast and nipple

== ENCOUNTER → 2023-03-18 | Outpatient (CLI) | payer OTHER ==
[2023-03-18 14:50] LABS: BASO # 0.1 10*3/uL (0.0-0.1); BASO % 0.8 % (0.0-1.0); EOS # 0.4 10*3/uL (0.0-0.4); EOS % 2.8 % (1.0-4.0); HEMATOCRIT 36.6 % (37.0-47.0); LYMPH # 3.3 10*3/uL (1.3-4.4); MEAN CELL VOLUME 76.1 fl (81.0-99.0); MEAN CORPUSCULAR HGB 23.9 pg (27.0-31.0); MEAN CORPUSCULAR HGB CONC 31.4 g/dl (33.0-37.0); MEAN PLATELET VOLUME 10.7 fl (9.6-12.3); MONO # 1.2 10*3/uL (0.1-1.0); PLATELET COUNT AUTOMATED 416 10*3/uL (130-400); RED BLOOD COUNT 4.81 10*6/uL (4.10-5.10); RED CELL DISTRI WIDTH 19.8 % (0-14.5); WHITE BLOOD COUNT 15.2 10*3/uL (4.8-10.8)
[2023-03-18 15:05] LABS: ACT PARTIAL THROMBO TIME 30.4 SECONDS (20.0-32.1)
[2023-03-18 15:11] LABS: BUN 7 mg/dl (9-23); CHLORIDE 103 mmol/L (98-107); POTASSIUM 3.9 mmol/L (3.4-5.1)
== END | disposition home or self-care (01) ==
LOC: LAB 14:34
PROVIDERS: ATTEND Surgery Vascular Surgery
DX: Z01.812 Encounter for preprocedural laboratory examination (principal); I73.9 Peripheral vascular disease, unspecified; R79.1 Abnormal coagulation profile

== ENCOUNTER 2023-04-02 14:16 | Emergency (ER) | payer OTHER ==
[~2023-04-02] VITALS: Wt 74.8 kg
[2023-04-02 14:44] VITALS: BP 175/59
[2023-04-02 15:42] LABS: BASO # 0.1 10*3/uL (0.0-0.1); BASO % 0.7 % (0.0-1.0); EOS # 0.3 10*3/uL (0.0-0.4); EOS % 2.6 % (1.0-4.0); HEMATOCRIT 35.4 % (37.0-47.0); LYMPH # 2.8 10*3/uL (1.3-4.4); LYMPH % 21.8 % (27.0-41.0); MEAN CELL VOLUME 76.5 fl (81.0-99.0); MEAN CORPUSCULAR HGB 23.8 pg (27.0-31.0); MEAN CORPUSCULAR HGB CONC 31.1 g/dl (33.0-37.0); MEAN PLATELET VOLUME 10.6 fl (9.6-12.3); MONO # 1.1 10*3/uL (0.1-1.0); MONO % 8.7 % (3.0-9.0); NEUT # 8.5 10*3/uL (2.3-7.9); NEUT % 65.7 % (47.0-73.0); PLATELET COUNT AUTOMATED 375 10*3/uL (130-400); RED BLOOD COUNT 4.63 10*6/uL (4.10-5.10); RED CELL DISTRI WIDTH 19.9 % (0-14.5); WHITE BLOOD COUNT 12.9 10*3/uL (4.8-10.8)
[2023-04-02 15:57] LABS: BILIRUBIN Negative (Negative); BLOOD Negative (Negative); CLARITY Clear (Clear); COLOR Yellow (Yellow); GLUCOSE Negative (Negative); KETONE Negative (Negative); LEUKO ESTERASE Negative (Negative); NITRITE Negative (Negative); PH 5.5 (4.5-8.0); SPECIFIC GRAVITY 1.015 (1.001-1.030); UROBILINOGEN 0.2 E.U./dl (0.0-1.0)
[2023-04-02 16:03] LABS: ALKALINE PHOSPHATASE 118 U/L (46-116); BUN 9 mg/dl (9-23); CHLORIDE 106 mmol/L (98-107); LIPASE 50 U/L (12-53); POTASSIUM 3.5 mmol/L (3.4-5.1); SGPT/ALT 8 U/L (5-49)
[2023-04-02 16:04] LABS: EPITHELIAL CELLS 16-20; MUCOUS 1+; RBC 0-2 rbc/hpf (0-2)
[2023-04-02] MEDS ORDERED: METRONIDAZOLE500 M1 PO (17:15)
== END 2023-04-02 17:21 | disposition home or self-care (01) ==
LOC: ED 14:16
PROVIDERS: Emergency Medicine
DX: R19.7 Diarrhea, unspecified (principal); K21.9 Gastro-esophageal reflux disease without esophagitis; R10.2 Pelvic and perineal pain; E78.5 Hyperlipidemia, unspecified; I10 Essential (primary) hypertension; E78.00 Pure hypercholesterolemia, unspecified; Z88.0 Allergy status to penicillin; Z88.2 Allergy status to sulfonamides; Z88.8 Allergy status to other drugs, medicaments and biological substances; Z90.49 Acquired absence of other specified parts of digestive tract; Z90.710 Acquired absence of both cervix and uterus; Z98.890 Other specified postprocedural states; Z90.89 Acquired absence of other organs; Z90.12 Acquired absence of left breast and nipple; F17.200 Nicotine dependence, unspecified, uncomplicated

== ENCOUNTER → 2023-06-04 | Outpatient (CLI) | payer OTHER ==
[~2023-06-04] MED LIST changes: +METRONIDAZOLE500 M1 PO
== END | disposition home or self-care (01) ==
LOC: US 05-21 09:30
PROVIDERS: ATTEND Internal Medicine
DX: R10.2 Pelvic and perineal pain (principal); Z90.710 Acquired absence of both cervix and uterus; R10.13 Epigastric pain; N28.1 Cyst of kidney, acquired

== ENCOUNTER 2023-07-04 14:37 | Inpatient (IN) | payer OTHER ==
[~2023-07-04] VITALS: Ht 165.1 cm; Wt 69.5 kg
[2023-07-04 14:46] VITALS: BP 142/108
[2023-07-04] MEDS ORDERED: Dicyclomine Hydrochloride 20 MG/10 ML OSYR PO STA (15:02)
[2023-07-04] MEDS ORDERED: MG-AL HYDROXIDE/SIMETICONE 30 ML UDC PO STA (15:02)
[2023-07-04] MEDS ORDERED: Lidocaine Hydrochloride 15 ML UDC PO STA (15:02)
[2023-07-04] MEDS ORDERED: ASPIRIN ADULT L81 M2 PO (15:07)
[2023-07-04] MEDS ORDERED: IOHEXOL 300 MG/ML 100 ML VIAL IV ONE (15:10)
[2023-07-04 15:27] LABS: BASO # 0.1 10*3/uL (0.0-0.1); BASO % 0.9 % (0.0-1.0); EOS # 0.3 10*3/uL (0.0-0.4); EOS % 1.9 % (1.0-4.0); HEMATOCRIT 32.6 % (37.0-47.0); LYMPH # 3.4 10*3/uL (1.3-4.4); LYMPH % 24.3 % (27.0-41.0); MEAN CORPUSCULAR HGB CONC 29.4 g/dl (33.0-37.0); MEAN PLATELET VOLUME 10.8 fl (9.6-12.3); MONO # 1.2 10*3/uL (0.1-1.0); MONO % 8.6 % (3.0-9.0); NEUT # 8.8 10*3/uL (2.3-7.9); NEUT % 63.9 % (47.0-73.0); PLATELET COUNT AUTOMATED 391 10*3/uL (130-400); RED BLOOD COUNT 4.18 10*6/uL (4.10-5.10); RED CELL DISTRI WIDTH 19.3 % (0-14.5); WHITE BLOOD COUNT 13.8 10*3/uL (4.8-10.8)
[2023-07-04 15:49] LABS: ALKALINE PHOSPHATASE 125 U/L (46-116); BUN 9 mg/dl (9-23); CHLORIDE 105 mmol/L (98-107); LIPASE 43 U/L (12-53); POTASSIUM 4.1 mmol/L (3.4-5.1); SGPT/ALT 9 U/L (5-49)
[2023-07-04] MEDS ORDERED: SODIUM CHLORIDE 0.9% 1,000 ML IV ONE (15:50)
[2023-07-04] MEDS ORDERED: Ceftriaxone Sodium 1 GM/10 ML SYR IV ONE (17:45)
[2023-07-04] MEDS ORDERED: SODIUM CHLORIDE 0.9% 1,000 ML IV SCH (17:45)
[2023-07-04 18:40] LABS: BILIRUBIN Negative (Negative); BLOOD Negative (Negative); CLARITY Clear (Clear); COLOR Yellow (Yellow); GLUCOSE Negative (Negative); KETONE Negative (Negative); LEUKO ESTERASE Negative (Negative); NITRITE Negative (Negative); UROBILINOGEN 0.2 E.U./dl (0.0-1.0)
[2023-07-04 18:47] LABS: BACTERIA 1+
[2023-07-04 20:00] VITALS: BP 177/55
[2023-07-04] MEDS ORDERED: Acetaminophen/Hydrocodone 5 MG/325 MG TABLET PO PRN (20:50)
[2023-07-05 05:36] VITALS: BP 177/58
[2023-07-05 05:42] LABS: ALKALINE PHOSPHATASE 116 U/L (46-116); BUN 7 mg/dl (9-23); CHLORIDE 108 mmol/L (98-107); POTASSIUM 3.7 mmol/L (3.4-5.1); TOTAL PROTEIN 6.3 gm/dL (6.0-8.0)
[2023-07-05 05:51] LABS: SGPT/ALT < 7 U/L (5-49)
[2023-07-05 05:56] LABS: BASO # 0.1 10*3/uL (0.0-0.1); BASO % 0.6 % (0.0-1.0); EOS # 0.4 10*3/uL (0.0-0.4); EOS % 2.6 % (1.0-4.0); HEMATOCRIT 30.1 % (37.0-47.0); LYMPH # 3.9 10*3/uL (1.3-4.4); LYMPH % 26.2 % (27.0-41.0); MEAN CORPUSCULAR HGB 22.5 pg (27.0-31.0); MEAN CORPUSCULAR HGB CONC 29.2 g/dl (33.0-37.0); MONO # 1.5 10*3/uL (0.1-1.0); MONO % 10.1 % (3.0-9.0); NEUT % 60.2 % (47.0-73.0); PLATELET COUNT AUTOMATED 390 10*3/uL (130-400); RED BLOOD COUNT 3.91 10*6/uL (4.10-5.10); RED CELL DISTRI WIDTH 19.3 % (0-14.5); WHITE BLOOD COUNT 14.9 10*3/uL (4.8-10.8)
[2023-07-05] MEDS ORDERED: Pantoprazole Sodium 20 MG TAB PO SCH (06:00)
[2023-07-05] MEDS ORDERED: APIXABAN 5 MG TAB PO SCH (06:00)
[2023-07-05 08:57] VITALS: BP 166/60
[2023-07-05] MEDS ORDERED: ASPIRIN ENTERIC COATED 81 MG TAB PO SCH (10:00)
[2023-07-05] MEDS ORDERED: Losartan Potassium 50 MG TAB PO SCH (10:00)
[2023-07-05 11:36] VITALS: BP 157/51
[2023-07-05 15:49] VITALS: BP 165/66
[2023-07-05] MEDS ORDERED: SODIUM CHLORIDE 0.9% 1,000 ML IV SCH (18:25)
[2023-07-05 20:00] VITALS: BP 174/60
[2023-07-05] MEDS ORDERED: GABAPENTIN 100 MG CAP PO SCH (22:00)
[2023-07-06] VITALS: BP 157/55
[2023-07-06] MEDS ORDERED: SUCRALFATE 1 GM TAB PO SCH (07:30)
[2023-07-06 08:00] VITALS: BP 162/64
[2023-07-06 12:00] VITALS: BP 172/60
[2023-07-06 16:00] VITALS: BP 146/89
[2023-07-06 20:00] VITALS: BP 168/50; BP 178/43
[2023-07-07] VITALS: BP 194/54; BP 195/56
[2023-07-07] MEDS ORDERED: hydrALAZINE hydrochloride 20 MG/ML VIAL IV ONE ×2 (00:05→06:25)
[2023-07-07 01:15] VITALS: BP 186/48
[2023-07-07] MEDS ORDERED: amLODIPine besylate 5 MG TAB PO SCH (01:45)
[2023-07-07 06:15] VITALS: BP 184/46
[2023-07-07] MEDS ORDERED: amLODIPine besylate 5 MG TAB PO ONE (06:25)
[2023-07-07 08:00] VITALS: BP 167/50
[2023-07-07 12:00] VITALS: BP 149/36
[2023-07-07] MEDS ORDERED: Carafate1 GM PO (12:58)
[2023-07-07] MEDS ORDERED: AMLODIPINE BESY10 MG PO (13:05)
[2023-07-08] MEDS ORDERED: amLODIPine besylate 10 MG TAB PO SCH (10:00)
== END 2023-07-07 18:04 | disposition home or self-care (01) | DRG 872 ==
LOC: ED 14:37 → EDHOLD 18:00 → 5E 07-05 15:17
PROVIDERS: Physician Assistant Medical; ADMIT Internal Medicine; ATTEND Internal Medicine
DX: A41.9 Sepsis, unspecified organism (principal); S22.080A Wedge compression fracture of T11-T12 vertebra, initial encounter for closed fracture; N39.0 Urinary tract infection, site not specified; I48.92 Unspecified atrial flutter; R65.20 Severe sepsis without septic shock; N28.1 Cyst of kidney, acquired; N32.89 Other specified disorders of bladder; E55.9 Vitamin D deficiency, unspecified; K21.9 Gastro-esophageal reflux disease without esophagitis; I48.91 Unspecified atrial fibrillation; E78.00 Pure hypercholesterolemia, unspecified; Z88.0 Allergy status to penicillin; Z88.2 Allergy status to sulfonamides; Z90.49 Acquired absence of other specified parts of digestive tract; Z90.710 Acquired absence of both cervix and uterus; Z81.2 Family history of tobacco abuse and dependence; X58.XXXA Exposure to other specified factors, initial encounter; Y93.89 Activity, other specified; Y92.89 Other specified places as the place of occurrence of the external cause; Y99.8 Other external cause status